=== PATIENT | male | born 1965 | race Caucasian/White ===

== ENCOUNTER 2019-03-13 11:53 | Day surgery (SDC) | payer BC, OTHER ==
[~2019-03-13 11:53] MED LIST: Lactated Ringers 1,000 ML IV SCH; Propofol 200 MG/20 ML SDV ONE; Sodium Chloride 0.9% 10 ML Syringe FLUSH PRN
[2019-03-13] MEDS ORDERED: Midazolam 1 MG/ML 2 ML SDV ONE ×2 (13:36→13:53)
[2019-03-13] MEDS ORDERED: Lidocaine 2% 5 ML SDV ONE (13:36)
[2019-03-13] MEDS ORDERED: Propofol 200 MG/20 ML SDV ONE ×2 (13:36→13:52)
--- NOTE | 2019-03-13 14:04 | PCM.PN ---
- General Info Date of Service: 03/13/19 - Review of Systems Systems Review Comment:: 53-year-old male referred for EGD and colonoscopy. He has a history of unexplained anemia. Patient's past history is significant for prior gastric bypass surgery. He also admits to a history of GERD. He is medically stable to proceed today. His recent history and physical is reviewed and no significant changes are noted. I discussed the proposed colonoscopy and EGD with the patient. Risks and possible complications discussed. He appears to understand and agrees to proceed. - Patient Data Vitals - Most Recent: Last Vital Signs Temp 98.8 F 03/13/19 12:44 Pulse 72 03/13/19 12:44 Resp 20 03/13/19 12:44 BP 114/80 03/13/19 12:44 Pulse Ox 94 L 03/13/19 12:44 Weight - Most Recent: 90.718 kg Med Orders - Current: Current Medications Lactated Ringer's (Ringers, Lactated) 1,000 mls @ 125 mls/hr IV ASDIRECTED LEIGHA Last Admin: 03/13/19 12:54 Dose: 125 mls/hr Sodium Chloride (Saline Flush) 10 ml FLUSH ASDIRECTED PRN PRN Reason: Keep Vein Open Discontinued Medications Midazolam HCl (Versed 1 Mg/Ml) Confirm Administered Dose 2 mg .ROUTE .STK-MED ONE Stop: 03/13/19 13:54 Propofol (Diprivan 20 Ml) Confirm Administered Dose 200 mg .ROUTE .STK-MED ONE Stop: 03/13/19 08:35 Propofol (Diprivan 20 Ml) Confirm Administered Dose 200 mg .ROUTE .STK-MED ONE Stop: 03/13/19 13:53 - Problem List Review Problem List Initiated/Reviewed/Updated: Yes - Assessment Assessment:: GERD Anemia - Plan Plan:: EGD and colonoscopy
--- NOTE | 2019-03-13 14:53 | PCM.OPNOTE ---
- General Post-Op/Procedure Note Date of Surgery/Procedure: 03/13/19 Operative Procedure(s): EGD with Biopsy and Colonoscopy Findings: Small ulcer without active bleeding at gastro-jejunal anastomosis Mild reflux esophagitis Normal colon Pre Op Diagnosis: Anemia. GERD Post-Op Diagnosis: Reflux Esophagitis. Gastro-Jejunal Anastomotic Ulcer. Normal Colon Anesthesia Technique: MAC Primary Surgeon: Torrey Haley Pathology: Biopsies of Anastomosis, Gastric Pouch, and GE Jct. EBL in mLs: 3 Complications: None Condition: Good
--- NOTE | 2019-03-14 09:06 | OR ---
Date of Procedure: 03/13/2019 PREOPERATIVE DIAGNOSES: Anemia and GERD. POSTOPERATIVE DIAGNOSES: Gastrojejunal anastomotic ulcer, reflux esophagitis, and normal colon. OPERATION PERFORMED: Esophagogastroduodenoscopy with biopsy and colonoscopy. INDICATIONS FOR SURGERY: This 53-year-old male had symptoms of unexplained anemia. He also has some GERD symptoms. He is referred for EGD and colonoscopy. FINDINGS: On upper endoscopy, findings are anatomically consistent with the patient's history of having had a prior Ursula-en-Y gastric bypass. At the patient's gastrojejunal anastomosis, there is a small ulcer approximately 5 mm in size. It has a white base and is currently not bleeding nor does it show any signs of recent bleeding. The anastomosis is otherwise widely patent. No other signs of pathology are seen in the gastric pouch or in the jejunum. The patient's GE junction is slightly irregular, consistent with a history of reflux esophagitis. The remainder of the esophagus appears normal. On colonoscopy, the patient's colon appeared normal. DESCRIPTION OF PROCEDURE: The patient was taken to the operating room. He was given intravenous sedation, and with him in the left lateral decubitus position, the gastroscope was inserted via a mouth guard into the patient's mouth. It was then carefully advanced down through the esophagus, stomach, and through the gastrojejunal anastomosis down into the jejunum. Examination of the jejunum was carried out and it appeared normal. Careful examination of the gastrojejunal anastomosis identified the above-described ulcer, and biopsies of this area are taken. Biopsies of the gastric pouch were then taken to rule out H pylori. The GE junction was also carefully examined, and biopsies were taken here because of the findings and the patient's history of GERD. The scope was removed and attention was turned to colonoscopy. Digital rectal exam was performed showing no rectal masses. The Olympus colonoscope was inserted into the rectum. Retroflexed examination of the rectal canal was performed. The scope was then carefully advanced under direct visualization through the entire length of the colon until the cecum was reached. Cecal acquisition was confirmed by noting a normal internal cecal anatomy including the appendiceal orifice and ileocecal valve. After examining the cecum, the scope was slowly withdrawn, sequentially re-examining the colonic segments until the entire colon and rectum had been fully examined. The scope was removed, and the patient was taken from the operating room in satisfactory condition. ESTIMATED BLOOD LOSS: 3 mL. COMPLICATIONS: None. PROGNOSIS: Good. OZIEL Haley MD /[id number] cc: Claudia Garay NP
== END 2019-03-13 15:29 | disposition home or self-care (01) ==
LOC: LL.SDS 11:53
PROVIDERS: ATTEND Surgery
DX: K21.0 Gastro-esophageal reflux disease with esophagitis (principal); K28.9 Gastrojejunal ulcer, unspecified as acute or chronic, without hemorrhage or perforation; K29.50 Unspecified chronic gastritis without bleeding; K31.89 Other diseases of stomach and duodenum; K22.8 Other specified diseases of esophagus; D50.9 Iron deficiency anemia, unspecified; I10 Essential (primary) hypertension; E03.9 Hypothyroidism, unspecified; F17.210 Nicotine dependence, cigarettes, uncomplicated; Z88.0 Allergy status to penicillin; Z98.84 Bariatric surgery status; Z79.1 Long term (current) use of non-steroidal anti-inflammatories (NSAID); Z79.899 Other long term (current) drug therapy
CPT/HCPCS: J2001; J2250; J2704; J7120